=== PATIENT | male | born 1975 | race African-American/Black ===

== ENCOUNTER 2022-04-17 09:38 | Emergency (ER) | payer MEDICARE ==
[2022-04-17] MEDS ORDERED: Ketorolac Tromethamine 30 MG/ML VIAL ONE (11:31)
[2022-04-17] MEDS ORDERED: Ondansetron ODT 4 MG TAB ONE (11:31)
== END 2022-04-17 13:10 | disposition home or self-care (01) ==
LOC: CSHERS 09:38
DX: U07.1 COVID-19 (principal); J20.8 Acute bronchitis due to other specified organisms; E11.65 Type 2 diabetes mellitus with hyperglycemia; E78.5 Hyperlipidemia, unspecified; I10 Essential (primary) hypertension
CPT/HCPCS: 71045; 82962; 87804 ×2; U0003; U0005; 36416; 96372; J1885; Q0162

== ENCOUNTER 2022-06-01 16:33 | Emergency (ER) | payer MEDICARE | END 2022-06-01 18:30 | disposition home or self-care (01) | LOC: CSHERS 16:33 | DX: K64.4 Residual hemorrhoidal skin tags (principal); E78.5 Hyperlipidemia, unspecified; I10 Essential (primary) hypertension; I25.10 Atherosclerotic heart disease of native coronary artery without angina pectoris; E11.51 Type 2 diabetes mellitus with diabetic peripheral angiopathy without gangrene | CPT/HCPCS: 99283 ==